=== PATIENT | male | born 1950 | race Caucasian/White ===

== ENCOUNTER 2016-11-17 17:19 | Observation (INO) ==
[2016-11-17] MEDS ORDERED: NITROGLYCERIN 2% OINT 1 INCH/GM PACK TOP STA (18:13)
[2016-11-17] MEDS ORDERED: fentaNYL 100 MCG/2 ML VIAL IV STA (18:13)
[2016-11-17] MEDS ORDERED: diphenhydrAMINE 50 MG/1 ML VIAL IV STA (18:13)
[2016-11-17] MEDS ORDERED: ASPIRIN 325 MG TABLET PO STA (18:13)
--- NOTE | 2016-11-17 18:17 | EKG Report ---
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
--- NOTE | 2016-11-17 18:19 | Emergency Department Note ---
Tremayne Quach Mantricia, am scribing for, and in the presence of, Lindsey Anaya DO 18:17. IHéctor Catherine, DO, personally performed the services described in this documentation, ascribed by Wilda Casper in my presence, and it is both accurate and complete . Arrival - Arrival Chief Complaint: Chest Pain Stated Complaint: chest pain ED Nursing Triage Note: C/o midsternal chest pressure and SOB-onset 2 days ago, worse today. +diaphoresis. +nausea. Mode of Arrival: Wheelchair Limitations: No Limitations Source: Patient - History of Present Illness HPI Narrative: Pt is a 66 y/o white male arriving to ED by EMS with c/o chest pain that onset about 2 days ago. Pt describes pain as a sharp pressure that radiates from his neck to his chest. He originally thought the pain started because of his prescribed medications and him being out of his prescribed nitroglycerin. However, Dr. Harmon denied this and suggested he come to the ED. Pt reports nausea, diaphoresis, and not being able to stand, but denies vomiting and a headache.He has a PMHx of HTN and admits to smoking years ago, but denies DM. Pt has a PSHx of 16 stents and 8 balloons. He admits his last procedure was 6 to 7 years ago. Pt's PCP is Dr. Bose. . Onset (ago): day(s) Consistency: constant Severity: moderate Severity scale (1-10): 4 Quality: sharp Allergies/Adverse Reactions: Allergies Allergy/AdvReac Type Severity Reaction Status Date / Time morphine AdvReac Nausea Verified 11/17/16 17:29 Home Medications: Home Medications Medication Instructions Recorded Confirmed Type Aspirin EC Tab 325 mg PO QAM 11/17/16 11/17/16 History Atenolol 100 mg PO QAM 11/17/16 11/17/16 History Gabapentin Cap/Tab [Neurontin 300 mg PO BID 11/17/16 11/17/16 History Cap/Tab] Isosorbide Mononitrate [Imdur] 30 mg PO QAM 11/17/16 11/17/16 History Levothyroxine Tab [Synthroid Tab] 150 mcg PO QAM 11/17/16 11/17/16 History Pravastatin [Pravachol] 40 mg PO QAM 11/17/16 11/17/16 History Ranitidine Tab [Zantac Tab] 150 mg PO BID 11/17/16 11/17/16 History amLODIPine [Norvasc] 10 mg PO QAM 11/17/16 11/17/16 History Review of System - Review of System Constitutional: Present: diaphoresis. Absent: chills, fever, night sweats Eyes: Absent: discharge, pain Head/Ears/Nose/Throat: Absent: earache Respiratory: Absent: cough Cardiovascular: Present: chest pain. Absent: palpitations, dyspnea on exertion Gastrointestinal: Present: nausea. Absent: abdominal pain, vomiting, diarrhea Genitourinary male: Absent: urgency, dysuria Musculoskeletal: Absent: arm pain, arthralgia Skin: Absent: rash, lesions Neurological: Absent: headache, weakness Psychiatric: Absent: anxiety, depression Medical,Surgical,& Family Hx - Medical History Cardio: History of: CAD, Hypertension Endocrine: History of: Dyslipidemia, Thyroid Disorder Musculoskeletal: History of: Back/Neck Problems, Degenerative Disk Disease, Herniated Disk, Musculoskeletal Problems - Surgical History Cardiac Surgeries: Sugical HX of: Cardiac Catheterization (stents x's 16) - Family History Family History: noncontributory - Social History Smoking Status: Never smoker Have you smoked in the last 12 months: No (he chews daily) Frequency of Alcohol Use: None Type of Drug Use: None Marital Status: Unknown Functional capacity: independent ambulation Exam Vital Signs: Vital Signs Temperature 98.2 F 11/17/16 17:26 Pulse Rate 59 L 11/17/16 19:10 Respiratory Rate 20 11/17/16 19:10 Blood Pressure 121/75 11/17/16 19:10 O2 Sat by Pulse Oximetry 95 11/17/16 19:10 - General General appearance: alert, in no apparent distress - Head Head exam: Present: atraumatic, normocephalic, normal inspection - Eye Eye exam: Present: normal appearance, PERRL, EOMI - ENT ENT exam: Present: normal exam, normal oropharynx, mucous membranes moist, TM's normal bilaterally, normal external ear exam - Neck Neck exam: Present: normal inspection, full ROM, trachea midline. Absent: tenderness - Chest Chest inspection: Present: normal inspection, symmetric chest wall rise. Absent : tenderness - Respiratory Respiratory exam: Present: normal lung sounds bilaterally. Absent: accessory muscle use, wheezes - Cardiovascular Cardiovascular exam: Present: regular rate, normal rhythm, normal heart sounds - Abdominal Exam Abdominal exam: Present: soft, distention, normal bowel sounds. Absent: tenderness, guarding, rebound - Extremities Exam Extremities exam: Present: normal inspection, full ROM. Absent: tenderness, pedal edema - Back Exam Back exam: Present: normal inspection, full ROM. Absent: tenderness - Neurological Exam Neurological exam: Present: alert, oriented X3, CN II-XII intact - Psychiatric Psychiatric exam: Present: normal affect, normal mood - Skin Skin exam: Present: warm, dry, intact, normal color Course Course Narrative: This is a 66-year-old male who presents to the ER tonight with chest pain and tightness that has been ongoing for the last 2 days. He does have a very extensive cardiac history with multiple procedures stents and balloons. He states he does not think he has had any procedures done in about the last 6-7 years. He also reports he has had a lot of back problems he recently was started on Neurontin he has had back surgeries for herniated disks in the past. He states his back is been bothering him as well. The family that is with him said today he was short of breath nauseated and just really uncomfortable with the pain. He called his chiropractic care and spoke to the doctor contract consultant and was recommended that he come to the ER for evaluation. At arrival in the ER the patient still complaining of chest tightness. His HEENT exam is normal neck is supple heart is regular rate and rhythm his lungs are clear in the anterior field abdomen is rounded and soft without tenderness masses rebound or guarding his extremities are intact and unable to reproduce his pain by palpation. His EKG did not show any acute findings. We did a set of cardiac enzymes which were also normal. He was given Nitropaste and some fentanyl. His pain has improved somewhat. I have spoken to the chiropractic care contract consultant and the recommendation is that he stay 24 hours. The patient is in agreement with this treatment plan. - Consultations Consultation #1: Dr Harmon Time: 20:38 Results - Labs CBC & BMP: 11/17/16 17:50 11/17/16 17:50 Lab Results: I have reviewed the patients labs - EKG EKG results: interpreted by ERMD, WNL - Impressions no acute process - Diagnostic Findings Procedure: Chest x-ray: image reviewed by me, report reviewed by me (no acute process) Disposition Clinical Impression: Chest pain Case discussed with: patient, patient's family Disposition: Still a Patient Condition: Stable Time of Disposition: 20:39
[2016-11-17 18:21] LABS: Basophils # 0.1 10*3/uL (0.0-0.2); Basophils % 0.8 % (0.0-0.8); Eosinophils # 0.3 10*3/uL (0.0-0.87); Eosinophils % 4.7 % (0.00-10.9); Hematocrit 47.8 VOL% (42.0-52.0); Hemoglobin 16.5 GM/DL (14.0-18.0); Immature Granulocytes % 0.3 %; Immature Granulocytes Absolute 0.02 #; Lymphocytes # 3.3 10*3/uL (1.4-4.0); Lymphocytes % 45.1 % (21.2-54.2); Mean Corpuscular HGB Conc 34.5 GM/DL (32-36); Mean Corpuscular Hemoglobin 31 PG (27-34); Mean Corpuscular Volume 90.9 FL (87-102); Mean Platelet Volume 9.7 FL (9.6-12.0); Monocytes # 0.6 10*3/uL (0.11-0.8); Monocytes % 8.4 % (1.7-12.7); Neutrophils % 40.7 % (38.7-73.9); Platelet Count 254 T/CUMM (130-400); Red Blood Count 5.26 MC/CUMM (3.8-5.5); Red Cell Distribution Width 13.1 % (9.3-17.3); White Blood Count 7.3 T/CUMM (4-12)
[2016-11-17] MEDS ORDERED: ASPIRIN 325 MG TABLET ONE (18:22)
[2016-11-17] MEDS ORDERED: NITROGLYCERIN 2% OINT 1 INCH/GM PACK TOP ONE (18:22)
[2016-11-17] MEDS ORDERED: fentaNYL 100 MCG/2 ML VIAL ONE (18:22)
[2016-11-17] MEDS ORDERED: diphenhydrAMINE 50 MG/1 ML VIAL ONE (18:22)
[2016-11-17 18:34] LABS: Albumin 3.9 G/DL (3.4-5.0); Bilirubin,Total 0.5 MG/DL (0.2-1.0); Calcium 9.2 MG/DL (8.5-10.1); Magnesium 2.4 MG/DL (1.8-2.4); Osmolality,Calculated 274.7 MOS/KG (273-304); Potassium 3.7 MMOL/L (3.5-5.1); Total Protein 7.7 G/DL (6.4-8.3)
--- NOTE | 2016-11-17 18:44 | XRay Report ---
Exam: XR chest 1V portable Indication: Midline chest pain Comparison study: None Findings: The heart, mediastinum, and bony structures are within normal limits. Mild elevation right hemidiaphragm with basilar atelectasis is suspected. There is no focal consolidation, pneumothorax or pleural effusion identified. Impression: No acute cardiopulmonary process. PROCEDURE INTERPRETED AT [facility] DEPARTMENT OF RADIOLOGY Final Report Signed by: Jimbo Hobbs
[2016-11-17] MEDS ORDERED: ONDANSETRON 4 MG/2 ML VIAL IV PRN (20:39)
[2016-11-17] MEDS ORDERED: fentaNYL 100 MCG/2 ML VIAL IV PRN (20:40)
[2016-11-18] MEDS ORDERED: PANTOPRAZOLE 40 MG TABLET PO SCH (09:00)
[2016-11-18] MEDS ORDERED: ISOSORBIDE MONONITRATE 60 MG TABLET PO SCH (09:00)
[2016-11-18] MEDS ORDERED: LEVOTHYROXINE 150 MCG TABLET PO SCH (09:00)
[2016-11-18] MEDS ORDERED: GABAPENTIN 300 MG CAPSULE PO SCH (09:00)
[2016-11-18] MEDS ORDERED: ASPIRIN EC 325 MG TABLET PO SCH (09:00)
[2016-11-18] MEDS ORDERED: ATENOLOL 100 MG TABLET PO SCH (09:00)
[2016-11-18] MEDS ORDERED: amLODIPine 10 MG TABLET PO SCH (09:00)
[2016-11-18] MEDS ORDERED: KETOROLAC 30 MG/1 ML VIAL IV ONE (09:00)
[2016-11-18] MEDS ORDERED: CLOPIDOGREL 300 MG TABLET PO ONE (09:02)
--- NOTE | 2016-11-18 09:06 | Cardiology History & Physical ---
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 Mckeon is a 66 year old male with a history of coronary artery disease including PCI and stenting to the distal LAD, obtuse marginal branch, proximal mid right coronary artery, distal mid right coronary artery, and possibly the more distal right coronary system. Last heart catheterization was 2008. CoMorbidities include hypertension, hyperlipidemia, sleep apnea. The patient is admitted with chest pain. He called the answering service yesterday, and requested that I prescribe him some nitroglycerin. As we elucidated further information, after learning that he was a cardiac patient and was having ongoing chest pressure for several hours, I encouraged him to come to the emergency room for further evaluation and treatment. His symptoms have been occurring for approximately 2 days without clear triggers or alleviators. It is described as a central chest pressure that radiates mildly into his left neck. There may be some associated mild dyspnea. The Nitropaste may have mildly improved his symptoms but he has had some ongoing mild pressure. There has been no recent change in his exercise tolerance, he denies orthopnea, lower extremity edema. His cardiac biomarkers have remained negative and his ECG is unchanged. I discussed the patient's symptomatology and clinical presentation with the patient at length. I have advised that the patient remain in the hospital and undergo cardiac catheterization on Sunday, but he prefers to go home. He has had some chronic back pain and has had some ongoing discomfort that seems to really affect his whole body and he finds it to be a hardship to be in the hospital. He thinks some of the symptoms may be coming from his chronic back pain. He has had difficulty with alleviating this pain despite several medications which were either ineffective or he is intolerant to. Impression and plan: 1. Chest pain-there are some typical and some atypical features. This is a high risk patient, and overall it has been 8 years since his last heart catheterization and I recommended that we proceed with this. However, the patient is opposed to the strategy and would like to go home. His biomarkers have been negative, his ECG is unchanged, despite some ongoing symptoms. This may very well be noncardiac. I am going to put him on a proton pump inhibitor ( advancing him from the H2 yoly) and restart his Plavix. Per his request I am going to call in some nitroglycerin. He will follow-up with Dr. Bose next week and determine his next plan. I have urged him to return to the hospital should his symptoms worsen. I have asked him to ambulate to determine whether or not this will worsen his symptoms. Home Medications Medication Instructions Recorded Confirmed Type Aspirin EC Tab 325 mg PO QAM 11/17/16 11/17/16 History Atenolol 100 mg PO QAM 11/17/16 11/17/16 History Gabapentin Cap/Tab [Neurontin 300 mg PO BID 11/17/16 11/17/16 History Cap/Tab] Isosorbide Mononitrate [Imdur] 30 mg PO QAM 11/17/16 11/17/16 History Levothyroxine Tab [Synthroid Tab] 150 mcg PO QAM 11/17/16 11/17/16 History Pravastatin [Pravachol] 40 mg PO QAM 11/17/16 11/17/16 History Ranitidine Tab [Zantac Tab] 150 mg PO BID 11/17/16 11/17/16 History amLODIPine [Norvasc] 10 mg PO QAM 11/17/16 11/17/16 History Allergies Allergy/AdvReac Type Severity Reaction Status Date / Time morphine AdvReac Nausea Verified 11/17/16 17:29 12 point system: reviewed and no additional remarkable complaints except as stated Medical,Surgical,& Family Hx - Medical History Cardio: History of: CAD, Hypertension Endocrine: History of: Dyslipidemia, Thyroid Disorder Musculoskeletal: History of: Back/Neck Problems, Degenerative Disk Disease, Herniated Disk, Musculoskeletal Problems - Surgical History Cardiac Surgeries: Sugical HX of: Cardiac Catheterization (stents x's 16) - Family History Family History: Reports;: Family Cancer (father colon ca), Family Heart Disease (mother father), Family Hypertension (father), Family Stroke (mother) - Social History Smoking Status: Never smoker Frequency of Alcohol Use: None Type of Drug Use: None Marital Status: Lives With:: Spouse Functional capacity: independent ambulation Cardiology Physical Exam - Constitutional Vitals: Vital Signs Temp Pulse Resp BP Pulse Ox 98.9 F 64 20 110/66 96 11/18/16 07:50 11/18/16 07:50 11/18/16 07:50 11/18/16 07:50 11/18/16 07:50 Intake and Output 11/17/16 11/18/16 11/18/16 23:59 07:59 15:59 Intake Total 480 / 480 480 / 480 Output Total 350 / 350 Balance 480 / 480 130 / 130 Intake: Oral 480 / 480 480 / 480 Output: Urine 350 / 350 Other: Voiding Method Toilet Urinal # Voids 1 Weight 94.347 kg Exam: General appearance: normal weight, no acute distress - Head Head exam: Present: normal inspection, normocephalic, atraumatic. Absent: hematoma, laceration - Eye Eye exam: Present: EOMI. Absent: conjunctival injection, nystagmus, periorbital swelling, scleral icterus, laceration to eyelids Pupils: Present: PERRL. Absent: constricted, dilated, fixed, irregular, unequal - ENT ENT exam: Present: normal exam, normal external ear exam - Neck Neck exam: Present: normal inspection. Absent: lymphadenopathy, meningismus, tenderness, thyromegaly - Respiratory Respiratory exam: Present: clear to auscultation bilaterally. Absent: accessory muscle use, chest wall tenderness - Cardiovascular Cardiovascular exam: Present: regular rate and rhythm. Absent: carotid bruit, gallop, JVD, rubs - GI/Abdominal GI/Abdominal exam: Present: normal bowel sounds, soft. Absent: distended, firm , guarding, hernia, mass, tenderness, rebound. - Extremities Exam Extremities exam: Present: normal inspection, normal capillary refill. Absent: calf tenderness, edema - Back Exam Back exam: Present: normal inspection. Absent: muscle spasm, vertebral tenderness - Neurological Exam Neurological exam: Present: alert, oriented X3, grossly intact without resting or intention tremor - Psychiatric Psychiatric exam: Present: normal affect, normal mood - Skin Skin exam: Present: normal color, warm, dry, intact. Absent: cyanosis, diaphoretic, rash, urticaria Result/EKG - Labs CBC & BMP: 11/17/16 17:50 11/17/16 17:50 Lab Results: I have reviewed the past 24 hour labs Labs: Laboratory Results - last 24 hr 11/17/16 11/18/16 21:31 00:58 Troponin I < 0.015 < 0.015 - Diagnostic Findings Procedure: Chest x-ray: report reviewed by me - EKG EKG results: interpreted by me, sinus rhythm, no acute changes
[2016-11-18] MEDS ORDERED: FAMOTIDINE 20 MG TABLET PO SCH (09:30)
[2016-11-18 11:28] VITALS: BP 115/72
--- NOTE | 2016-11-18 11:41 | Discharge Summary ---
Hospital Course - Hospital Course Hospital Course: Mr. Mckeon is a 66 year old male with a history of coronary artery disease including PCI and stenting to the distal LAD, obtuse marginal branch, proximal mid right coronary artery, distal mid right coronary artery, and possibly the more distal right coronary system. Last heart catheterization was 2008. CoMorbidities include hypertension, hyperlipidemia, sleep apnea. The patient is admitted with chest pain. He called the answering service yesterday, and requested that I prescribe him some nitroglycerin. As we elucidated further information, after learning that he was a cardiac patient and was having ongoing chest pressure for several hours, I encouraged him to come to the emergency room for further evaluation and treatment. His symptoms have been occurring for approximately 2 days without clear triggers or alleviators. It is described as a central chest pressure that radiates mildly into his left neck. There may be some associated mild dyspnea. The Nitropaste may have mildly improved his symptoms but he has had some ongoing mild pressure. There has been no recent change in his exercise tolerance, he denies orthopnea, lower extremity edema. His cardiac biomarkers have remained negative and his ECG is unchanged. I discussed the patient's symptomatology and clinical presentation with the patient at length. I have advised that the patient remain in the hospital and undergo cardiac catheterization on Sunday, but he prefers to go home. He has had some chronic back pain and has had some ongoing discomfort that seems to really affect his whole body and he finds it to be a hardship to be in the hospital. He thinks some of the symptoms may be coming from his chronic back pain. He has had difficulty with alleviating this pain despite several medications which were either ineffective or he is intolerant to. Impression and plan: 1. Chest pain-there are some typical and some atypical features. This is a high risk patient, and overall it has been 8 years since his last heart catheterization and I recommended that we proceed with this. However, the patient is opposed to the strategy and would like to go home. His biomarkers have been negative, his ECG is unchanged, despite some ongoing symptoms. This may very well be noncardiac. I am going to put him on a proton pump inhibitor ( advancing him from the H2 yoly) and restart his Plavix. Per his request I am going to call in some nitroglycerin. He will follow-up with Dr. Bose next week and determine his next plan. I have urged him to return to the hospital should his symptoms worsen. I have asked him to ambulate to determine whether or not this will worsen his symptoms. Course: The patient ambulated the granda for a couple of hours without any worsening of his symptoms, he did report that they were infected better, although this may have been just because he wanted to be discharged. He did not want to stay in the hospital for any further evaluation or treatment. We discussed restarting his Plavix, he is hesitant to do so but I would like him to at least until he is reevaluated by Dr. Nicole. Diagnosis - Discharge Diagnosis (1) Chest pain Status: Acute (2) CAD (coronary artery disease) Status: Chronic (3) HTN (hypertension) Status: Chronic (4) Hyperlipidemia Status: Chronic (5) Sleep apnea Status: Acute Discharge Plan - Discharge Data Disposition: Disch To Home/Self Care Condition at Discharge: Stable Discharge Diet: heart healthy Activity: resume usual activities as tolerated Hygiene: no restrictions Driving: no restrictions - Discharge Medications New Clopidogrel [Plavix] 75 mg PO DAILY #30 tablet Pantoprazole Tab [Protonix Tab] 40 mg PO DAILY #30 tablet Nitroglycerin 0.4 mg SL DIRECTED PRN #1 bottle PRN Reason: Chest Pain Continue Aspirin EC Tab 325 mg PO QAM amLODIPine [Norvasc] 10 mg PO QAM Isosorbide Mononitrate [Imdur] 30 mg PO QAM Ranitidine Tab [Zantac Tab] 150 mg PO BID Pravastatin [Pravachol] 40 mg PO QAM Atenolol 100 mg PO QAM Levothyroxine Tab [Synthroid Tab] 150 mcg PO QAM Gabapentin Cap/Tab [Neurontin Cap/Tab] 300 mg PO BID - Follow Up or Referral Follow Up: Nohelia Nicole DO [Physician] - 1 Week - Forms/Instructions Exam - Constitutional Vitals: Period Temp Pulse Resp BP Sys/Velazquez Pulse Ox Last 24 Hr 97.6 F-98.9 F 60-64 18-20 96-115/55-72 93-96 Exam: General appearance: normal weight, no acute distress - Head Head exam: Present: normal inspection, normocephalic, atraumatic. Absent: hematoma, laceration - Eye Eye exam: Present: EOMI. Absent: conjunctival injection, nystagmus, periorbital swelling, scleral icterus, laceration to eyelids Pupils: Present: PERRL. Absent: constricted, dilated, fixed, irregular, unequal - ENT ENT exam: Present: normal exam, normal external ear exam - Neck Neck exam: Present: normal inspection. Absent: lymphadenopathy, meningismus, tenderness, thyromegaly - Respiratory Respiratory exam: Present: clear to auscultation bilaterally. Absent: accessory muscle use, chest wall tenderness - Cardiovascular Cardiovascular exam: Present: regular rate and rhythm. Absent: carotid bruit, gallop, JVD, rubs - GI/Abdominal GI/Abdominal exam: Present: normal bowel sounds, soft. Absent: distended, firm , guarding, hernia, mass, tenderness, rebound. - Extremities Exam Extremities exam: Present: normal inspection, normal capillary refill. Absent: calf tenderness, edema - Back Exam Back exam: Present: normal inspection. Absent: muscle spasm, vertebral tenderness - Neurological Exam Neurological exam: Present: alert, oriented X3, grossly intact without resting or intention tremor - Psychiatric Psychiatric exam: Present: normal affect, normal mood - Skin Skin exam: Present: normal color, warm, dry, intact. Absent: cyanosis, diaphoretic, rash, urticaria Discharge Results Labs on day of discharge: Labs from last 24 hours 11/18/16 11/17/16 00:58 21:31 Troponin I < 0.015 < 0.015 DS: Provider Date of admission: 11/17/16 20:39 Primary care physician: . No PCP Attending physician on admission: Carla Harmon, Discharging clinician: Carla Harmon, Expected date of discharge: 11/18/16
[2016-11-18] MEDS ORDERED: PRAVASTATIN 40 MG TABLET PO SCH (21:00)
[2016-11-19] MEDS ORDERED: CLOPIDOGREL 75 MG TABLET PO SCH (09:00)
== END 2016-11-18 12:50 | disposition home or self-care (01) ==
LOC: N.EDINP 17:19 → N.ED 17:19 → N.TELEN 21:11
PROVIDERS: ADMIT Internal Medicine Cardiovascular Disease; ATTEND Internal Medicine Cardiovascular Disease

== ENCOUNTER 2017-09-20 14:05 | Observation (INO) ==
[2017-09-20] MEDS ORDERED: ASPIRIN 325 MG TABLET PO STA (14:42)
[2017-09-20] MEDS ORDERED: ONDANSETRON 4 MG/2 ML VIAL IV STA (14:48)
[2017-09-20] MEDS ORDERED: NITROGLYCERIN 2% OINT 1 INCH/GM PACK TOP STA (14:48)
[2017-09-20] MEDS ORDERED: HYDROmorphone 2 MG/1 ML VIAL IV STA (14:48)
[2017-09-20] MEDS ORDERED: ALUM/MAG/SIMETH/LIDO VISC 1:1 30 ML BOTTLE PO STA (14:48)
[2017-09-20] MEDS ORDERED: NITROGLYCERIN 2% OINT 1 INCH/GM PACK TOP ONE (14:56)
[2017-09-20] MEDS ORDERED: ONDANSETRON 4 MG/2 ML VIAL ONE (14:56)
[2017-09-20] MEDS ORDERED: HYDROmorphone 2 MG/1 ML VIAL ONE (14:57)
[2017-09-20] MEDS ORDERED: ALUM/MAG/SIMETH/LIDO VISC 1:1 30 ML BOTTLE PO ONE (14:57)
[2017-09-20] MEDS ORDERED: ASPIRIN 325 MG TABLET ONE (14:57)
[2017-09-20 15:33] LABS: Basophils # 0.1 10*3/uL (0.0-0.2); Basophils % 0.9 % (0.0-0.8); Eosinophils # 0.3 10*3/uL (0.0-0.87); Eosinophils % 3.9 % (0.00-10.9); Hematocrit 47.8 VOL% (42.0-52.0); Hemoglobin 16.2 GM/DL (14.0-18.0); Immature Granulocytes % 0.1 %; Immature Granulocytes Absolute 0.01 #; Lymphocytes # 3.1 10*3/uL (1.4-4.0); Lymphocytes % 41.9 % (21.2-54.2); Mean Corpuscular HGB Conc 33.9 GM/DL (32-36); Mean Corpuscular Hemoglobin 32 PG (27-34); Mean Corpuscular Volume 92.8 FL (87-102); Mean Platelet Volume 9.7 FL (9.6-12.0); Monocytes # 0.7 10*3/uL (0.11-0.8); Monocytes % 9.5 % (1.7-12.7); Neutrophils # 3.3 10*3/uL (1.4-7.4); Neutrophils % 43.7 % (38.7-73.9); Platelet Count 247 T/CUMM (130-400); Red Blood Count 5.15 MC/CUMM (3.8-5.5); Red Cell Distribution Width 13.2 % (9.3-17.3); White Blood Count 7.5 T/CUMM (4-12)
[2017-09-20] MEDS ORDERED: ZALEPLON 5 MG CAPSULE PO PRN (15:44)
[2017-09-20] MEDS ORDERED: ACETAMINOPHEN 325 MG TABLET PO PRN (15:44)
[2017-09-20] MEDS ORDERED: DIAZEPAM 5 MG TABLET PO ONE (15:45)
[2017-09-20] MEDS ORDERED: diphenhydrAMINE CAP 25 MG CAPSULE PO ONE (15:45)
[2017-09-20 15:47] LABS: INR 1.1; PT Patient Result 11.4 SECS
[2017-09-20 15:52] LABS: Albumin 3.9 G/DL (3.4-5.0); Bilirubin,Total 0.9 MG/DL (0.2-1.0); Calcium 9.1 MG/DL (8.5-10.1); Osmolality,Calculated 275.7 MOS/KG (273-304); Potassium 4.2 MMOL/L (3.5-5.1); Total Protein 7.4 G/DL (6.4-8.3)
[2017-09-20] MEDS ORDERED: SODIUM CHLORIDE 0.45% 1,000 ML IV SCH (16:00)
[2017-09-20] MEDS ORDERED: diphenhydrAMINE CAP 50 MG CAPSULE ONE (16:14)
[2017-09-20] MEDS ORDERED: LIDOCAINE 1% 20 ML VIAL ONE (16:33)
[2017-09-20] MEDS ORDERED: HEPARIN/NACL 0.9% 2 UNITS/ML 0 ML IV ONE (16:33)
[2017-09-20] MEDS ORDERED: HEPARIN/NACL 0.9% 2 UNITS/ML 2,000 ML IV ONE (16:34)
[2017-09-20] MEDS ORDERED: fentaNYL 100 MCG/2 ML VIAL ONE ×2 (16:41→17:16)
[2017-09-20] MEDS ORDERED: BIVALIRUDIN 250 MG VIAL IV ONE (17:17)
[2017-09-20] MEDS ORDERED: TICAGRELOR 90 MG TABLET ONE (17:57)
[2017-09-20] MEDS ORDERED: ONDANSETRON 4 MG/2 ML VIAL IV PRN (18:23)
[2017-09-20] MEDS ORDERED: fentaNYL 100 MCG/2 ML VIAL IV PRN (18:23)
[2017-09-20] MEDS ORDERED: ENOXAPARIN 40 MG/0.4 ML SYRINGE SUBCUT SCH (21:00)
[2017-09-20] MEDS ORDERED: ATORVASTATIN 40 MG TABLET PO SCH (21:00)
[2017-09-20] MEDS ORDERED: TICAGRELOR 90 MG TABLET PO SCH (21:00)
[2017-09-21 05:10] LABS: Basophils # 0.1 10*3/uL (0.0-0.2); Eosinophils # 0.3 10*3/uL (0.0-0.87); Eosinophils % 3.8 % (0.00-10.9); Hematocrit 44.2 VOL% (42.0-52.0); Hemoglobin 15.8 GM/DL (14.0-18.0); Immature Granulocytes % 0.3 %; Immature Granulocytes Absolute 0.02 #; Lymphocytes # 2.2 10*3/uL (1.4-4.0); Lymphocytes % 31.8 % (21.2-54.2); Mean Corpuscular HGB Conc 35.7 GM/DL (32-36); Mean Corpuscular Hemoglobin 32 PG (27-34); Mean Corpuscular Volume 89.8 FL (87-102); Mean Platelet Volume 9.5 FL (9.6-12.0); Monocytes # 0.8 10*3/uL (0.11-0.8); Neutrophils # 3.5 10*3/uL (1.4-7.4); Neutrophils % 52.1 % (38.7-73.9); Platelet Count 215 T/CUMM (130-400); Red Blood Count 4.92 MC/CUMM (3.8-5.5); Red Cell Distribution Width 13.2 % (9.3-17.3); White Blood Count 6.8 T/CUMM (4-12)
[2017-09-21 05:48] LABS: Calcium 8.4 MG/DL (8.5-10.1); Osmolality,Calculated 277.5 MOS/KG (273-304); Potassium 3.8 MMOL/L (3.5-5.1); Risk Ratio 3.26; VLDL CHOLESTEROL 21.2 MG/DL
[2017-09-21] MEDS ORDERED: ASPIRIN EC 81 MG TABLET PO SCH (09:00)
[2017-09-21 12:42] VITALS: BP 131/82
[2017-09-21] MEDS ORDERED: TICAGRELOR 90 MG TABLET PO SCH (18:00)
== END 2017-09-21 12:05 | disposition home or self-care (01) ==
LOC: N.EDINP 14:05 → N.ED 14:05 → N.CC 16:28 → N.TELEN 18:25 → N.CC 18:26
PROVIDERS: ADMIT Internal Medicine Cardiovascular Disease; ATTEND Internal Medicine Cardiovascular Disease
PROC: CLCCHCL (ICD-10-PCS; 2017-09-20 16:45)

== ENCOUNTER 2019-10-23 07:00 | Inpatient (IN) ==
[2019-10-23] MEDS ORDERED: GLUCAGON 1 MG VIAL IM PRN (09:15)
[2019-10-23] MEDS ORDERED: CEFUROXIME INJ 1,500 MG in SYRINGE 1 EACH IV ONE (09:15)
[2019-10-23] MEDS ORDERED: DEXTROSE 50% 25 GM/50 ML VIAL IV PRN (09:15)
[2019-10-23 10:06] LABS: Basophils # 0.1 10*3/uL (0.0-0.2); Basophils % 1.2 % (0.0-0.8); Eosinophils # 0.4 10*3/uL (0.0-0.87); Eosinophils % 4.8 % (0.00-10.9); Hematocrit 48.3 VOL% (42.0-52.0); Immature Granulocytes % 0.3 %; Immature Granulocytes Absolute 0.02 #; Lymphocytes # 2.3 10*3/uL (1.4-4.0); Lymphocytes % 31.1 % (21.2-54.2); Mean Corpuscular HGB Conc 33.1 GM/DL (32-36); Mean Corpuscular Volume 92.4 FL (87-102); Mean Platelet Volume 9.1 FL (9.6-12.0); Neutrophils % 53.6 % (38.7-73.9); Platelet Count 265 T/CUMM (130-400); Red Blood Count 5.23 MC/CUMM (3.8-5.5); Red Cell Distribution Width 13.7 % (9.3-17.3); White Blood Count 7.2 T/CUMM (4-12)
[2019-10-23 10:29] LABS: Albumin 3.9 G/DL (3.4-5.0); Bilirubin,Total 0.7 MG/DL (0.2-1.0); Calcium 8.6 MG/DL (8.5-10.1); Osmolality,Calculated 275.7 MOS/KG (273-304); Total Protein 7.6 G/DL (6.4-8.3)
[2019-10-23 10:36] LABS: ABG Base Excess 1.3 MMOL/L (-2.5-2.5); ABG HCO3 25.6 MMOL/L (20-26); ABG Oxygen Saturation 97.2 % (95-100); ABG PCO2 35.8 MM HG (35-48); ABG PH 7.449 (7.35-7.45); ABG PO2 85.9 MM HG (80-95); ABG TCO2 20.8 MMOL/L (23-27)
[2019-10-23] MEDS ORDERED: ACETAMINOPHEN 325 MG TABLET PO PRN (11:54)
[2019-10-23] MEDS ORDERED: NITROGLYCERIN SL 0.4 MG TABLET SL PRN (13:28)
[2019-10-23] MEDS: NITROGLYCERIN SL 0.4 MG TABLET SL SCH ×6 (13:29→13:34)
[2019-10-23] MEDS: CHLORHEXIDINE 4% SOLN 118 ML BOTTLE TOP SCH (16:57)
[2019-10-24] MEDS: CHLORHEXIDINE 0.12% ORAL RINSE 60 ML BOTTLE SWISH/SPIT SCH ×3 (02:18→20:46)
[2019-10-24] MEDS: CHLORHEXIDINE 4% SOLN 118 ML BOTTLE TOP SCH ×2 (02:18→12:48)
[2019-10-24] MEDS ORDERED: PAPAVERINE 60 MG/2 ML VIAL ONE (04:23)
[2019-10-24] MEDS ORDERED: VANCOMYCIN 500 MG VIAL ONE (04:24)
[2019-10-24] MEDS ORDERED: VANCOMYCIN 1,000 MG VIAL ONE (04:24)
[2019-10-24] MEDS ORDERED: FAMOTIDINE 20 MG TABLET PO ONE (06:00)
[2019-10-24] MEDS ORDERED: DIAZEPAM 5 MG TABLET PO ONE (06:00)
[2019-10-24] MEDS ORDERED: SUFentanil 250 MCG/5 ML AMP ONE (06:06)
[2019-10-24] MEDS ORDERED: MIDAZOLAM 10 MG/2 ML VIAL ONE ×2 (06:06→12:53)
[2019-10-24] MEDS ORDERED: CEFUROXIME INJ 1,500 MG in SYRINGE 1 EACH IV ONE (07:00)
[2019-10-24 07:49] LABS: ABG Base Excess 0.4 MMOL/L (-2.5-2.5); ABG HCO3 24.8 MMOL/L (20-26); ABG Oxygen Saturation 99.7 % (95-100); ABG PCO2 33.1 MM HG (35-48); ABG PH 7.457 (7.35-7.45); ABG TCO2 19.6 MMOL/L (23-27); Glucose Heart Surgery 131 MG/DL (74-106); Hematocrit Heart Surgery 47.8 PERCENT (42-52); Hemoglobin Heart Surgery 15.6 G/DL (14.0-18.0); Ionized Calcium Arterial 1.11 MMOL/L (1.21-1.46); PCO2 Patient Temp Arterial 33.1 MMHG; PH Patient Temp Arterial 7.457; Patient Temperature 37 CELCIUS; Potassium Heart/CVR 4.2 MMOL/L (3.5-5.1); Sodium Heart/CVR 135 MMOL/L (135-145)
[2019-10-24 08:25] LABS: Apearance,Urine CLEAR (Clear); Bilirubin,Urine Negative (Negative); Blood, Urine Negative (Negative); Glucose,Urine (UA) Negative (Negative); Ketones,Urine Negative (Negative); Nitrite,Urine Negative (Negative); Protein,Urine Negative; RBC,Urine <1 /HPF (0-4); Urine Color Straw (Yellow); Urine Specific Gravity 1.006 (1.001-1.035); Urine Urobilinogen < 2.0 EU/DL (0.2-1.0); WBC,Urine <1 /HPF (0-6)
[2019-10-24] MEDS ORDERED: PHENYLEPHRINE DRIP 40 MG/250 ML PREMIX IV ONE (09:13)
[2019-10-24] MEDS ORDERED: PHENYLEPHRINE DRIP 20 MG/250 ML PREMIX IV ONE (09:20)
[2019-10-24] MEDS ORDERED: CALCIUM CHLORIDE 1,000 MG/10 ML VIAL IV ONE (09:20)
[2019-10-24] MEDS ORDERED: MINERAL OIL/PETROLATUM OPH OINT 3.5 GM TUBE ONE (09:20)
[2019-10-24] MEDS ORDERED: HEPARIN/NACL 0.9% 2 UNITS/ML 500 ML IV ONE (09:20)
[2019-10-24] MEDS ORDERED: NITROGLYCERIN DRIP 50 MG/250 ML BOTTLE IV ONE (09:21)
[2019-10-24] MEDS ORDERED: AMINOCAPROIC ACID 5,000 MG/20 ML VIAL ONE (09:21)
[2019-10-24 09:23] LABS: Hematocrit Heart Surgery 33.9 PERCENT (42-52); PCO2 Patient Temp Venous 29.1 MM HG; PH Patient Temp Venous 7.495; PO2 Patient Temp Venous 39.7 MM HG; Potassium Heart/CVR 5.1 MMOL/L (3.5-5.1); VBG HCO3 24.2 MEQ/L (24-28); VBG Oxygen Saturation 84.2 %; VBG PCO2 32.1 MMHG (41-51); VBG PH 7.465; VBG PO2 45.6 MMHG (17-40)
[2019-10-24 10:03] LABS: Hematocrit Heart Surgery 38.2 PERCENT (42-52); Hemoglobin Heart Surgery 12.4 G/DL (14.0-18.0); PCO2 Patient Temp Venous 25.8 MM HG; PH Patient Temp Venous 7.541; PO2 Patient Temp Venous 34.1 MM HG; Potassium Heart/CVR 5.3 MMOL/L (3.5-5.1); VBG Base Excess 0.7 MEQ/L (0-4); VBG HCO3 24.7 MEQ/L (24-28); VBG Oxygen Saturation 81.6 %; VBG PCO2 29.9 MMHG (41-51); VBG PH 7.495; VBG PO2 42.1 MMHG (17-40)
[2019-10-24 10:26] LABS: Hematocrit Heart Surgery 39.6 PERCENT (42-52); Hemoglobin Heart Surgery 12.9 G/DL (14.0-18.0); PCO2 Patient Temp Venous 31.3 MM HG; PH Patient Temp Venous 7.482; PO2 Patient Temp Venous 37.4 MM HG; Potassium Heart/CVR 5.4 MMOL/L (3.5-5.1); VBG Base Excess 0.8 MEQ/L (0-4); VBG HCO3 24.6 MEQ/L (24-28); VBG Oxygen Saturation 74.8 %; VBG PCO2 31.3 MMHG (41-51); VBG PH 7.482; VBG PO2 37.4 MMHG (17-40)
[2019-10-24] MEDS ORDERED: DEXTROSE 5% KCL 20 MEQ 20 MEQ/1,000 ML BAG IV ONE (10:54)
[2019-10-24] MEDS ORDERED: LIDOCAINE 2% 5 ML VIAL ONE ×2 (10:54→12:52)
[2019-10-24] MEDS ORDERED: MANNITOL 100 GM/500 ML BAG IV ONE (10:54)
[2019-10-24] MEDS ORDERED: ALBUMIN 25% 25 GM/100 ML VIAL IV ONE (10:55)
[2019-10-24] MEDS ORDERED: PROTAMINE SULFATE 50 MG/5 ML VIAL IV ONE ×2 (10:55→11:54)
[2019-10-24] MEDS ORDERED: HEPARIN 10,000 UNIT/10 ML VIAL ONE (10:55)
[2019-10-24] MEDS ORDERED: PROTAMINE SULFATE 250 MG/25 ML VIAL IV ONE (10:55)
[2019-10-24] MEDS ORDERED: methylPREDNISolone SOD SUC 1,000 MG/8 ML VIAL ONE (10:55)
[2019-10-24] MEDS ORDERED: MAGNESIUM SULFATE 5 GM/10 ML VIAL IV ONE (10:55)
[2019-10-24] MEDS ORDERED: SODIUM BICARBONATE 50 MEQ/50 ML VIAL IV ONE (10:55)
[2019-10-24] MEDS ORDERED: FUROSEMIDE 20 MG/2 ML VIAL ONE (10:55)
[2019-10-24 11:06] LABS: ABG Base Excess -0.4 MMOL/L (-2.5-2.5); ABG HCO3 24.1 MMOL/L (20-26); ABG Oxygen Saturation 96.6 % (95-100); ABG PCO2 36.6 MM HG (35-48); ABG PH 7.419 (7.35-7.45); ABG PO2 81.1 MM HG (80-95); ABG TCO2 20.5 MMOL/L (23-27); Glucose Heart Surgery 228 MG/DL (74-106); Hematocrit Heart Surgery 41.2 PERCENT (42-52); Hemoglobin Heart Surgery 13.4 G/DL (14.0-18.0); Ionized Calcium Arterial 1.22 MMOL/L (1.21-1.46); PCO2 Patient Temp Arterial 36.6 MMHG; PH Patient Temp Arterial 7.419; PO2 Patient Temp Arterial 81.1 MM HG; Patient Temperature 37 CELCIUS; Potassium Heart/CVR 4.1 MMOL/L (3.5-5.1); Sodium Heart/CVR 134 MMOL/L (135-145)
[2019-10-24] MEDS ORDERED: INSULIN REGULAR 100 UNIT/ML IV ONE (11:50)
[2019-10-24] MEDS ORDERED: CALCIUM CHLORIDE 1,000 MG/10 ML SYRINGE IV PRN (11:50)
[2019-10-24] MEDS ORDERED: LACTATED RINGERS 250 ML IV PRN (11:50)
[2019-10-24] MEDS ORDERED: PHENYLEPHRINE DRIP 40 MG/250 ML PREMIX IV PRN (11:50)
[2019-10-24] MEDS ORDERED: MAGNESIUM SULF RIDER 4 GM in PREMIX 1 EACH IV PRN (11:50)
[2019-10-24] MEDS ORDERED: NITROPRUSSIDE 100 MG in DEXTROSE 5% 250 ML IV PRN (11:50)
[2019-10-24] MEDS ORDERED: MAGNESIUM SULF RIDER 2 GM in PREMIX 1 EACH IV PRN (11:50)
[2019-10-24] MEDS ORDERED: VECURONIUM 10 MG VIAL IV PRN ×2 (11:50)
[2019-10-24] MEDS ORDERED: CHLORHEXIDINE 4% SOLN 118 ML BOTTLE TOP PRN (11:50)
[2019-10-24] MEDS ORDERED: INSULIN REGULAR 100 UNIT/ML IV PRN (11:50)
[2019-10-24] MEDS ORDERED: ACETAMINOPHEN 650 MG SUPP RECTAL PRN (11:50)
[2019-10-24] MEDS ORDERED: INSULIN REGULAR DRIP 100 ML IV SCH (11:50)
[2019-10-24] MEDS ORDERED: POTASSIUM CHLORIDE RIDER 10 MEQ in PREMIX 1 EACH IV PRN (11:50)
[2019-10-24] MEDS ORDERED: SODIUM CHLORIDE 0.45% 1,000 ML IV SCH ×2 (11:50)
[2019-10-24] MEDS ORDERED: DEXTROSE 10% 250 ML BAG IV PRN ×2 (11:50)
[2019-10-24] MEDS ORDERED: ONDANSETRON 4 MG/2 ML VIAL IV PRN (11:50)
[2019-10-24 12:27] LABS: ABG Base Excess -1.5 MMOL/L (-2.5-2.5); ABG HCO3 23.1 MMOL/L (20-26); ABG Oxygen Saturation 96.6 % (95-100); ABG PCO2 42.9 MM HG (35-48); ABG PH 7.358 (7.35-7.45); ABG PO2 91.7 MM HG (80-95); ABG TCO2 20.9 MMOL/L (23-27); Glucose Heart Surgery 193 MG/DL (74-106); Hematocrit Heart Surgery 43.2 PERCENT (42-52); Hemoglobin Heart Surgery 14.1 G/DL (14.0-18.0); Potassium Heart/CVR 3.7 MMOL/L (3.5-5.1)
[2019-10-24 12:28] LABS: VBG Base Excess -1.3 MEQ/L (0-4); VBG HCO3 24.7 MEQ/L (24-28); VBG Oxygen Saturation 72.3 %; VBG PH 7.347; VBG PO2 42.1 MMHG (17-40)
[2019-10-24 12:29] LABS: Basophils # 0.1 10*3/uL (0.0-0.2); Basophils % 0.5 % (0.0-0.8); Eosinophils # 0.1 10*3/uL (0.0-0.87); Eosinophils % 0.8 % (0.00-10.9); Hematocrit 41.8 VOL% (42.0-52.0); Immature Granulocytes % 0.4 %; Immature Granulocytes Absolute 0.04 #; Lymphocytes # 1.2 10*3/uL (1.4-4.0); Lymphocytes % 12.8 % (21.2-54.2); Mean Corpuscular HGB Conc 33.5 GM/DL (32-36); Mean Corpuscular Volume 91.7 FL (87-102); Mean Platelet Volume 8.9 FL (9.6-12.0); Neutrophils % 80.5 % (38.7-73.9); Platelet Count 198 T/CUMM (130-400); Red Blood Count 4.56 MC/CUMM (3.8-5.5); Red Cell Distribution Width 13.3 % (9.3-17.3); White Blood Count 9.3 T/CUMM (4-12)
[2019-10-24 12:39] LABS: INR 1.2; PT Patient Result 12.4 SECS (9.8-11.9); Partial Thromboplastin Time 28.7 SECS (23.9-33.8)
[2019-10-24] MEDS: POTASSIUM CHLORIDE RIDER 20 MEQ in PREMIX 1 EACH IV PRN ×2 (12:45→15:47)
[2019-10-24 12:47] LABS: CKMB % 5.1 %
[2019-10-24] MEDS ORDERED: SEVOFLURANE 1 UNIT/15 MINUTE INH ONE (12:52)
[2019-10-24 12:53] LABS: Troponin I 3.63 NG/ML (0.00-0.045)
[2019-10-24] MEDS ORDERED: SODIUM CHLORIDE 0.9% 250 ML IV ONE (12:53)
[2019-10-24] MEDS ORDERED: SUCCINYLCHOLINE 200 MG/10 ML VIAL ONE (12:53)
[2019-10-24] MEDS ORDERED: LACTATED RINGERS 1,000 ML IV ONE (12:53)
[2019-10-24] MEDS ORDERED: ETOMIDATE 40 MG/20 ML VIAL IV ONE (12:53)
[2019-10-24] MEDS ORDERED: VECURONIUM 10 MG VIAL IV ONE (12:53)
[2019-10-24] MEDS ORDERED: SODIUM CHLORIDE 0.9% 1,000 ML IV ONE (12:53)
[2019-10-24] MEDS ORDERED: SODIUM CHLORIDE 0.9% 200 ML IV ONE (12:53)
[2019-10-24 12:56] LABS: Albumin 3.4 G/DL (3.4-5.0); Bilirubin,Total 1.5 MG/DL (0.2-1.0); Calcium 8.6 MG/DL (8.5-10.1); Osmolality,Calculated 281.5 MOS/KG (273-304); Total Protein 6.2 G/DL (6.4-8.3)
[2019-10-24] MEDS: LACTATED RINGERS 1,000 ML IV PRN ×2 (13:00→14:42)
[2019-10-24] MEDS ORDERED: HYDROmorphone 2 MG/1 ML VIAL IV PRN (13:31)
[2019-10-24] MEDS ORDERED: HALOPERIDOL 5 MG/ML AMP IV PRN (13:32)
[2019-10-24 14:09] LABS: ABG Base Excess -1.3 MMOL/L (-2.5-2.5); ABG HCO3 23.3 MMOL/L (20-26); ABG Oxygen Saturation 94.6 % (95-100); ABG PCO2 47.1 MM HG (35-48); ABG PH 7.335 (7.35-7.45); ABG PO2 80.2 MM HG (80-95); ABG TCO2 21.8 MMOL/L (23-27); Glucose Heart Surgery 182 MG/DL (74-106); Hematocrit Heart Surgery 44.2 PERCENT (42-52); Hemoglobin Heart Surgery 14.4 G/DL (14.0-18.0); Potassium Heart/CVR 4.4 MMOL/L (3.5-5.1)
[2019-10-24] MEDS ORDERED: DEXMEDETOMIDINE 200 MCG in SODIUM CHLORIDE 0.9% 48 ML IV PRN (14:30)
[2019-10-24 15:16] LABS: ABG Base Excess -0.2 MMOL/L (-2.5-2.5); ABG HCO3 24.2 MMOL/L (20-26); ABG Oxygen Saturation 95.9 % (95-100); ABG PCO2 42.6 MM HG (35-48); ABG PH 7.379 (7.35-7.45); ABG PO2 81.7 MM HG (80-95); ABG TCO2 21.7 MMOL/L (23-27); Glucose Heart Surgery 154 MG/DL (74-106); Hematocrit Heart Surgery 43.9 PERCENT (42-52); Hemoglobin Heart Surgery 14.3 G/DL (14.0-18.0); Potassium Heart/CVR 4.2 MMOL/L (3.5-5.1)
[2019-10-24] MEDS: ALBUMIN 5% 12.5 GM in PREMIX 1 EACH IV PRN ×3 (16:58→21:10)
[2019-10-24 17:07] LABS: ABG Base Excess 0.2 MMOL/L (-2.5-2.5); ABG HCO3 24.6 MMOL/L (20-26); ABG Oxygen Saturation 95.6 % (95-100); ABG PCO2 41.5 MM HG (35-48); ABG PH 7.392 (7.35-7.45); ABG PO2 78.4 MM HG (80-95); ABG TCO2 21.7 MMOL/L (23-27); Glucose Heart Surgery 153 MG/DL (74-106); Hematocrit Heart Surgery 43.7 PERCENT (42-52); Hemoglobin Heart Surgery 14.2 G/DL (14.0-18.0); Potassium Heart/CVR 4.5 MMOL/L (3.5-5.1)
[2019-10-24] MEDS ORDERED: FUROSEMIDE 40 MG/4 ML VIAL IV ONE (20:14)
[2019-10-24] MEDS: CEFUROXIME INJ 1,500 MG in SYRINGE 1 EACH IV SCH (20:26)
[2019-10-24 20:44] LABS: ABG Base Excess -0.9 MMOL/L (-2.5-2.5); ABG HCO3 23.6 MMOL/L (20-26); ABG Oxygen Saturation 96.6 % (95-100); ABG PCO2 38.7 MM HG (35-48); ABG PH 7.396 (7.35-7.45); ABG PO2 82.6 MM HG (80-95); ABG TCO2 20.7 MMOL/L (23-27); Glucose Heart Surgery 153 MG/DL (74-106); Hematocrit Heart Surgery 40.2 PERCENT (42-52); Hemoglobin Heart Surgery 13.1 G/DL (14.0-18.0); Potassium Heart/CVR 4.4 MMOL/L (3.5-5.1)
[2019-10-24] MEDS: SODIUM CHLORIDE 0.9% 1,000 ML IV SCH (20:46)
[2019-10-24] MEDS: KETOROLAC 30 MG/1 ML VIAL IV SCH (20:50)
[2019-10-24 21:04] LABS: CKMB % 4.9 %
[2019-10-24 21:11] LABS: Troponin I 7.93 NG/ML (0.00-0.045)
[2019-10-24 21:45] LABS: ABG Base Excess -1.7 MMOL/L (-2.5-2.5); ABG HCO3 22.9 MMOL/L (20-26); ABG Oxygen Saturation 97.9 % (95-100); ABG PO2 90.9 MM HG (80-95); ABG TCO2 19.2 MMOL/L (23-27); Glucose Heart Surgery 152 MG/DL (74-106); Potassium Heart/CVR 4.4 MMOL/L (3.5-5.1)
[2019-10-24 22:38] LABS: ABG Base Excess -0.8 MMOL/L (-2.5-2.5); ABG HCO3 23.7 MMOL/L (20-26); ABG Oxygen Saturation 96.5 % (95-100); ABG PCO2 39.9 MM HG (35-48); ABG PH 7.388 (7.35-7.45); ABG PO2 82.7 MM HG (80-95); ABG TCO2 20.9 MMOL/L (23-27); Glucose Heart Surgery 150 MG/DL (74-106); Hematocrit Heart Surgery 41.2 PERCENT (42-52); Hemoglobin Heart Surgery 13.4 G/DL (14.0-18.0); Potassium Heart/CVR 4.3 MMOL/L (3.5-5.1)
[2019-10-24 23:38] LABS: ABG Base Excess -0.1 MMOL/L (-2.5-2.5); ABG HCO3 24.3 MMOL/L (20-26); ABG Oxygen Saturation 96.4 % (95-100); ABG PCO2 38.2 MM HG (35-48); ABG PH 7.411 (7.35-7.45); ABG PO2 81.3 MM HG (80-95); ABG TCO2 20.9 MMOL/L (23-27); Glucose Heart Surgery 149 MG/DL (74-106); Hematocrit Heart Surgery 42.5 PERCENT (42-52); Hemoglobin Heart Surgery 13.8 G/DL (14.0-18.0); Potassium Heart/CVR 4.2 MMOL/L (3.5-5.1)
[2019-10-25 01:25] LABS: ABG Base Excess 0.1 MMOL/L (-2.5-2.5); ABG HCO3 24.4 MMOL/L (20-26); ABG Oxygen Saturation 93.6 % (95-100); ABG PH 7.423 (7.35-7.45); ABG PO2 67.8 MM HG (80-95); Glucose Heart Surgery 150 MG/DL (74-106); Hematocrit Heart Surgery 40.9 PERCENT (42-52); Hemoglobin Heart Surgery 13.3 G/DL (14.0-18.0)
[2019-10-25] MEDS: KETOROLAC 30 MG/1 ML VIAL IV SCH ×4 (02:35→20:58)
[2019-10-25 03:44] LABS: ABG Base Excess 0.3 MMOL/L (-2.5-2.5); ABG HCO3 24.6 MMOL/L (20-26); ABG Oxygen Saturation 94.7 % (95-100); ABG PCO2 36.7 MM HG (35-48); ABG PH 7.429 (7.35-7.45); ABG PO2 70.1 MM HG (80-95); ABG TCO2 21.2 MMOL/L (23-27); Glucose Heart Surgery 141 MG/DL (74-106); Hematocrit Heart Surgery 40.1 PERCENT (42-52); Potassium Heart/CVR 3.8 MMOL/L (3.5-5.1)
[2019-10-25 04:05] LABS: Albumin 3.8 G/DL (3.4-5.0); Bilirubin,Direct 0.3 MG/DL (0.0-0.20); Bilirubin,Total 1.5 MG/DL (0.2-1.0); Calcium 8.2 MG/DL (8.5-10.1); Osmolality,Calculated 283.3 MOS/KG (273-304); Total Protein 6.1 G/DL (6.4-8.3)
[2019-10-25 04:28] LABS: CKMB % 4.4 %
[2019-10-25 04:29] LABS: Troponin I 12.6 NG/ML (0.00-0.045)
[2019-10-25 04:57] LABS: Basophils % 0.1 % (0.0-0.8); Hematocrit 38.7 VOL% (42.0-52.0); Hemoglobin 12.8 GM/DL (14.0-18.0); Immature Granulocytes % 0.4 %; Immature Granulocytes Absolute 0.06 #; Lymphocytes # 1.1 10*3/uL (1.4-4.0); Lymphocytes % 7.2 % (21.2-54.2); Mean Corpuscular HGB Conc 33.1 GM/DL (32-36); Mean Corpuscular Volume 92.4 FL (87-102); Neutrophils % 86.3 % (38.7-73.9); Platelet Count 188 T/CUMM (130-400); Red Blood Count 4.19 MC/CUMM (3.8-5.5); Red Cell Distribution Width 13.6 % (9.3-17.3); White Blood Count 15.2 T/CUMM (4-12)
[2019-10-25] MEDS: ALBUMIN 5% 12.5 GM in PREMIX 1 EACH IV PRN (05:22)
[2019-10-25] MEDS: POTASSIUM CHLORIDE RIDER 20 MEQ in PREMIX 1 EACH IV PRN (06:04)
[2019-10-25] MEDS ORDERED: PANTOPRAZOLE 40 MG TABLET PO SCH (09:00)
[2019-10-25] MEDS: CEFUROXIME INJ 1,500 MG in SYRINGE 1 EACH IV SCH ×2 (09:00→20:58)
[2019-10-25] MEDS ORDERED: DEXTROSE 10% 250 ML BAG IV PRN (10:02)
[2019-10-25] MEDS ORDERED: ZALEPLON 5 MG CAPSULE PO PRN (10:02)
[2019-10-25] MEDS ORDERED: MAGNESIUM HYDROXIDE SUSP 30 ML UDCUP PO PRN (10:02)
[2019-10-25] MEDS ORDERED: SODIUM CHLOR 0.45% KCL 20 MEQ 20 MEQ/1,000 ML BAG IV SCH (10:02)
[2019-10-25] MEDS ORDERED: MAGNESIUM SULF RIDER 2 GM in PREMIX 1 EACH IV PRN (10:02)
[2019-10-25] MEDS ORDERED: GLUCAGON 1 MG VIAL IM PRN (10:02)
[2019-10-25] MEDS ORDERED: POTASSIUM CHLORIDE 20 MEQ TABLET PO PRN (10:02)
[2019-10-25] MEDS ORDERED: ALUMINUM/MAGNES/SIMETH MAX STR 30 ML UDCUP PO PRN (10:02)
[2019-10-25] MEDS ORDERED: MAGNESIUM SULF RIDER 4 GM in PREMIX 1 EACH IV PRN (10:02)
[2019-10-25] MEDS ORDERED: ONDANSETRON 4 MG/2 ML VIAL IV PRN (10:02)
[2019-10-25] MEDS ORDERED: ACETAMINOPHEN 325 MG TABLET PO PRN (10:02)
[2019-10-25] MEDS: SIMVASTATIN 20 MG TABLET PO SCH (10:07)
[2019-10-25] MEDS: ASPIRIN EC 81 MG TABLET PO SCH (10:07)
[2019-10-25] MEDS: THIAMINE 100 MG TABLET PO SCH (10:07)
[2019-10-25] MEDS: LEVOTHYROXINE 150 MCG TABLET PO SCH (10:07)
[2019-10-25] MEDS: FOLIC ACID 1 MG TABLET PO SCH (10:08)
[2019-10-25] MEDS: MULTIVITAMIN (BEROCCA) TABLET PO SCH (10:08)
[2019-10-25] MEDS: CHLORHEXIDINE 0.12% ORAL RINSE 60 ML BOTTLE SWISH/SPIT SCH ×2 (11:03→20:58)
[2019-10-25 12:09] LABS: CKMB % 3.4 %
[2019-10-25 12:12] LABS: Troponin I 11.3 NG/ML (0.00-0.045)
[2019-10-26] MEDS: KETOROLAC 30 MG/1 ML VIAL IV SCH ×5 (02:42→21:20)
[2019-10-26 03:55] LABS: Basophils % 0.1 % (0.0-0.8); Hematocrit 32.4 VOL% (42.0-52.0); Hemoglobin 10.7 GM/DL (14.0-18.0); Immature Granulocytes % 0.4 %; Immature Granulocytes Absolute 0.06 #; Lymphocytes # 1.3 10*3/uL (1.4-4.0); Lymphocytes % 9.2 % (21.2-54.2); Mean Platelet Volume 10.2 FL (9.6-12.0); Monocytes % 8.8 % (1.7-12.7); Neutrophils % 81.5 % (38.7-73.9); Platelet Count 146 T/CUMM (130-400); Red Blood Count 3.52 MC/CUMM (3.8-5.5); Red Cell Distribution Width 13.9 % (9.3-17.3); White Blood Count 14.2 T/CUMM (4-12)
[2019-10-26 04:24] LABS: Albumin 3.2 G/DL (3.4-5.0); Bilirubin,Direct 0.2 MG/DL (0.0-0.20); Bilirubin,Total 0.9 MG/DL (0.2-1.0); Calcium 8.1 MG/DL (8.5-10.1); Osmolality,Calculated 280.8 MOS/KG (273-304); Total Protein 5.9 G/DL (6.4-8.3)
[2019-10-26 04:47] LABS: Albumin 3.3 G/DL (3.4-5.0); Bilirubin,Direct 0.26 MG/DL (0.0-0.20); Bilirubin,Indirect 0.5 MG/DL (0.0-1.0); Bilirubin,Total 0.8 MG/DL (0.2-1.0); CKMB % 1.3 %; Total Protein 5.4 G/DL (6.4-8.3)
[2019-10-26 04:52] LABS: Troponin I 6.68 NG/ML (0.00-0.045)
[2019-10-26] MEDS: FUROSEMIDE 40 MG/4 ML VIAL IV ONE ×2 (05:58→07:05)
[2019-10-26] MEDS ORDERED: HYDROmorphone 2 MG TABLET PO PRN (07:40)
[2019-10-26] MEDS: THIAMINE 100 MG TABLET PO SCH (08:50)
[2019-10-26] MEDS: ASPIRIN EC 81 MG TABLET PO SCH (08:50)
[2019-10-26] MEDS: FOLIC ACID 1 MG TABLET PO SCH (08:50)
[2019-10-26] MEDS: DOCUSATE SODIUM 100 MG CAPSULE PO SCH (08:50)
[2019-10-26] MEDS: LEVOTHYROXINE 150 MCG TABLET PO SCH (08:50)
[2019-10-26] MEDS: MULTIVITAMIN (BEROCCA) TABLET PO SCH (08:50)
[2019-10-26] MEDS: FERROUS SULFATE 325 MG TABLET PO SCH (08:50)
[2019-10-26] MEDS: SIMVASTATIN 20 MG TABLET PO SCH (08:50)
[2019-10-26] MEDS: CHLORHEXIDINE 0.12% ORAL RINSE 60 ML BOTTLE SWISH/SPIT SCH ×2 (08:51→21:20)
[2019-10-26] MEDS: PANTOPRAZOLE 40 MG TABLET PO SCH (08:52)
[2019-10-27] MEDS: KETOROLAC 30 MG/1 ML VIAL IV SCH ×3 (02:03→09:11)
[2019-10-27 05:51] LABS: Basophils % 0.1 % (0.0-0.8); Hematocrit 35.1 VOL% (42.0-52.0); Hemoglobin 11.6 GM/DL (14.0-18.0); Immature Granulocytes % 0.5 %; Immature Granulocytes Absolute 0.07 #; Lymphocytes # 1.9 10*3/uL (1.4-4.0); Lymphocytes % 14.8 % (21.2-54.2); Mean Corpuscular Volume 91.6 FL (87-102); Mean Platelet Volume 10.6 FL (9.6-12.0); Neutrophils % 73.6 % (38.7-73.9); Platelet Count 167 T/CUMM (130-400); Red Blood Count 3.83 MC/CUMM (3.8-5.5)
[2019-10-27 06:16] LABS: Alanine Aminotransferase 22 U/L (16-61); Albumin 3.4 G/DL (3.4-5.0); Alkaline Phosphatase 61 U/L (45-117); Aspartate Amino Transferase 44 U/L (0-37); Bilirubin,Indirect 1.2 MG/DL (0.0-1.0); Total Protein 6.6 G/DL (6.4-8.3)
[2019-10-27 06:18] LABS: Albumin 3.5 G/DL (3.4-5.0); Bilirubin,Direct 0.28 MG/DL (0.0-0.20); Bilirubin,Total 1.3 MG/DL (0.2-1.0); Calcium 8.2 MG/DL (8.5-10.1); Osmolality,Calculated 278.7 MOS/KG (273-304); Total Protein 6.1 G/DL (6.4-8.3)
[2019-10-27 08:46] VITALS: BP 140/74
[2019-10-27] MEDS: MULTIVITAMIN (BEROCCA) TABLET PO SCH (09:09)
[2019-10-27] MEDS: CHLORHEXIDINE 0.12% ORAL RINSE 60 ML BOTTLE SWISH/SPIT SCH (09:09)
[2019-10-27] MEDS: DOCUSATE SODIUM 100 MG CAPSULE PO SCH (09:09)
[2019-10-27] MEDS: LEVOTHYROXINE 150 MCG TABLET PO SCH (09:09)
[2019-10-27] MEDS: PANTOPRAZOLE 40 MG TABLET PO SCH (09:10)
[2019-10-27] MEDS: THIAMINE 100 MG TABLET PO SCH (09:10)
[2019-10-27] MEDS: FOLIC ACID 1 MG TABLET PO SCH (09:10)
[2019-10-27] MEDS: FERROUS SULFATE 325 MG TABLET PO SCH (09:10)
[2019-10-27] MEDS: ASPIRIN EC 81 MG TABLET PO SCH (09:10)
[2019-10-27] MEDS: SIMVASTATIN 20 MG TABLET PO SCH (09:10)
== END 2019-10-27 11:33 | disposition home health service (06) | DRG 236 ==
LOC: N.TELES 09:06 → N.CVR 10-24 11:17 → N.TELES 10-25 10:55